=== PATIENT | female | born 1995 | race Two or more races ===

== ENCOUNTER 2024-03-14 15:38 | Emergency (ER) | payer OTHER ==
[2024-03-14 15:43] VITALS: BP 99/66; PULSE 60; RESP 20; TEMP 98.6; BMI 23.3
[2024-03-14 17:09] LABS: BASO % 0.4 % (0-2.0); EOS % 0.9 % (0-4.5); HEMATOCRIT 40.1 % (32.4-45.2); HEMOGLOBIN 13.8 GM/dL (10.7-15.3); LYMPH % 27.6 % (8-40); MCH 30.3 pg (25.7-33.7); MCHC 34.3 g/dl (32.0-36.0); MEAN CELL VOLUME 88.3 fl (80-96); MEAN PLT VOLUME 9.1 fl (7.5-11.1); MONO % 7.2 % (3.8-10.2); NEUT % 63.9 % (42.8-82.8); PLATELET COUNT 178 10^3/uL (134-434); RBC 4.55 M/mm3 (3.60-5.2); RDW 12.9 % (11.6-15.6); WHITE BLOOD COUNT 5.4 K/mm3 (4.0-10.0)
[2024-03-14] MEDS ORDERED: ACETAMINOPHEN INJECTION 100 ML ONE (17:14)
[2024-03-14] MEDS ORDERED: METOCLOPRAMIDE HCL INJECTION 10 MG/2 ML VIAL ONE (17:14)
[2024-03-14 17:15] LABS: HCG,QUALITATIVE URINE Negative
[2024-03-14 17:17] LABS: EPI CELLS >36 /uL (0-25.1); HYALINE CASTS 2 /uL (0-3.1); PH,URINE 5.5 (5.0-8.0); URINE APPEARANCE CLEAR; URINE BACTERIA 251 /uL (0-1359); URINE BILIRUBIN NEGATIVE (NEGATIVE); URINE COLOR YELLOW; URINE GLUCOSE (UA) NEGATIVE (NEGATIVE); URINE KETONE NEGATIVE (NEGATIVE); URINE LEUK ESTERASE TRACE (NEGATIVE); URINE NITRITE NEGATIVE (NEGATIVE); URINE PROTEIN NEGATIVE (NEGATIVE); URINE RBC 10 /uL (0-23.9); URINE UROBILINOGEN 0.2 mg/dL (0.2-1.0); URINE WBC 32 /uL (0-25.8)
[2024-03-14 17:25] LABS: POTASSIUM 4.4 mmol/L (3.5-5.1)
[2024-03-14] MEDS: ACETAMINOPHEN 1000 MG/100 ML BAG IVPB ONE (17:25)
[2024-03-14] MEDS: METOCLOPRAMIDE HCL INJECTION 10 MG/2 ML VIAL IVPB ONE (17:25)
[2024-03-14 17:28] LABS: BLOOD UREA NITROGEN 13.7 mg/dL (7-18); CALCIUM 9.2 mg/dL (8.5-10.1)
[2024-03-14 17:31] LABS: CREATININE 0.6 mg/dL (0.55-1.3)
[2024-03-14 17:32] LABS: BILIRUBIN,TOTAL 0.3 mg/dL (0.2-1); TOT PROT 7.6 g/dl (6.4-8.2)
== END 2024-03-14 20:09 | disposition home or self-care (01) ==
LOC: JER 15:38
PROC: 3E033NZ Introduction of Analgesics, Hypnotics, Sedatives into Peripheral Vein, Percutaneous Approach (ICD-10-PCS; principal; 2024-03-14)
PROC: 3E033GC Introduction of Other Therapeutic Substance into Peripheral Vein, Percutaneous Approach (ICD-10-PCS; 2024-03-14)
DX: R51.9 Headache, unspecified (principal); R07.0 Pain in throat; R50.9 Fever, unspecified; M79.10 Myalgia, unspecified site; R63.0 Anorexia; R06.02 Shortness of breath; R42 Dizziness and giddiness
CPT/HCPCS: 36415; 70450-TC; 71046-TC-FY; 80053; 81003; 84484; 84703; 85025; 85379; 87086; 93005; 93010; 99285-25; J0131